=== PATIENT | female | born 1960 | race Caucasian/White ===

== ENCOUNTER → 2020-03-11 10:50 | Outpatient (CLI) | payer OTHER ==
[2020-03-11 18:38] LABS: BASOPHILS 0.7 % (0-2); EOSINOPHILS 4.3 % (0-7); HEMATOCRIT 43.6 % (36.0-48.0); HEMOGLOBIN 14.7 g/dL (12-16); IMMATURE GRANULOCYTES 0.1 % (0-5); LYMPHOCYTES 26.3 % (15-50); MCH 31.2 pg (26.0-34.0); MCHC 33.7 g/dL (31.0-37.0); MCV 92.6 fL (80.0-100.0); MEAN PLATELET VOLUME 11.2 fL (7.4-10.4); MONOCYTES 6.7 % (2-11); NEUTROPHILS 61.9 % (40-80); PLATELET COUNT 358 10x3/uL (130-400); RBC 4.71 10x6/uL (4.00-5.40); WBC 7.5 10x3/uL (4.8-10.8)
== END | disposition home or self-care (01) ==
LOC: D.LABREF 10:50
PROVIDERS: ATTEND Internal Medicine Pulmonary Disease
DX: R05 Cough (principal); J30.2 Other seasonal allergic rhinitis

== ENCOUNTER 2020-03-17 09:47 | Day surgery (SDC) | payer OTHER ==
[~2020-03-17] VITALS: Ht 152.4 cm; Wt 51.8 kg
--- NOTE | ~2020-03-17 | OP ---
PATIENT NAME: ADITHYA GUERRA MEDICAL RECORD: [id number] :60 LOCATION:[facility] ADMISSION DATE: SURGEON: KARLOS DIEZ MD DATE OF OPERATION: 03/17/2020 PROCEDURE: Colonoscopy with polypectomy. REFERRING PHYSICIAN: Lauren Cummins. INDICATIONS: Ms. Guerra is a delightful 59-year-old woman with a history of GE reflux disease, epigastric pain, Hemoccult positive stool and history of colon polyps. She had an EGD on 12/24/2019 with finding showing a small hiatal hernia, antral ulcers, nonhemorrhagic and gastritis. Her hemoglobin today is 14.5 with an MCV of 93.1. Her last colonoscopy was 03/21/2017 with finding showing [id number] pandiverticulosis coli and 3 colon polyps. To further evaluate as a surveillance colonoscopy and to further evaluate Hemoccult positive stool, she presents for outpatient colonoscopy. PREMEDICATIONS: Total IV anesthesia (propofol 400 mg), ASA 3. INSTRUMENT: Olympus video colonoscope, pediatric. PROCEDURE AND FINDINGS: After receiving informed consent, Ms. Guerra was placed on the left lateral decubitus position, sedated as per anesthesia. After achieving adequate sedation, distal rectal exam was performed that showed no external hemorrhoidal tags, fissures or fistulas, normal sphincter tone, no palpable rectal masses. The colonoscope was introduced per rectally and advanced to the cecum without difficulty. The cecum, IC valve, and appendiceal orifice were identified and appeared normal. As the colonoscope was withdrawn, careful inspection was made of the dominguez of the colon. Overall mucosa had normal vascular and fold pattern. There was a moderate number of diverticula seen in the ascending colon and a few diverticula seen scattered in the transverse colon. Again, number of diverticula were seen scattered throughout the sigmoid colon. In the distal sigmoid colon, there was a diminutive polyp measuring 0.25 cm in size that was ablated with the hot biopsy forceps. Two other polyps measuring 0.3 cm in size, sessile in nature, located again in the sigmoid colon, removed hot biopsy forcep technique. Retroflexion in the rectum showed mild internal hemorrhoids, grade II. A good prep was present. Ms. Guerra tolerated the procedure well, no immediate complications. Withdrawal time was 8 minutes. ASSESSMENT: 1. Jzfo-ez-rmqfmjle pandiverticulosis coli. 2. Three colon polyps, one diminutive status post ablation, the other 2 removed with hot biopsy forceps technique. 3. Grade II internal hemorrhoids (the gastric ulcers and hemorrhoids, likely source of Hemoccult positive blood). RECOMMENDATIONS: 1. Follow up histopathology. 2. Avoid aspirin, nonsteroidal anti-inflammatory drugs and BETTENCOURT-2 inhibitors 14 days post polypectomy. 3. High fiber diet. OPERATIVE REPORT [id number] ADTIHYA GUERRA 4. Surveillance colonoscopy in 3 years. TRANSINT:[id number] Voice Confirmation ID: [id number] DOCUMENT ID: [id number] cc: MIKAYLA Gale TERRI MD CC: [id number] DICTATION DATE: 03/17/20 1140 [employer] OPERATOR: 03/17/20 1516 [facility] 03/17/[address] [id number]
[2020-03-17] MEDS ORDERED: DEXILANT60 MG PO (10:29)
[2020-03-17] MEDS ORDERED: ACEBUTOLOL HCL200 MG PO (10:30)
[2020-03-17] MEDS ORDERED: FLUTICASONE PRO16 GM NASAL (10:30)
[2020-03-17] MEDS ORDERED: ZYRTEC10 MG PO (10:30)
[2020-03-17] MEDS ORDERED: SINGULAIR10 MG PO (10:31)
[2020-03-17] MEDS ORDERED: TRAZODONE HCL150 MG PO (10:31)
[2020-03-17] MEDS ORDERED: PEPCID40 MG PO (10:32)
[2020-03-17 10:34] LABS: BASOPHILS 0.5 % (0-2); EOSINOPHILS 2.1 % (0-7); HEMATOCRIT 42.9 % (36.0-48.0); HEMOGLOBIN 14.5 g/dL (12-16); IMMATURE GRANULOCYTES 0.3 % (0-5); LYMPHOCYTES 25.8 % (15-50); MCH 31.5 pg (26.0-34.0); MCHC 33.8 g/dL (31.0-37.0); MCV 93.1 fL (80.0-100.0); MEAN PLATELET VOLUME 10.6 fL (7.4-10.4); MONOCYTES 9.3 % (2-11); PLATELET COUNT 312 10x3/uL (130-400); RBC 4.61 10x6/uL (4.00-5.40); RDW 12.9 % (11.5-14.5); WBC 6.6 10x3/uL (4.8-10.8)
[2020-03-17 10:41] VITALS: Ht 152.4 cm; Wt 51.8 kg
[2020-03-17 10:42] LABS: CALC OSMOLALITY 266 mosm/kg (275-300); CALCIUM 10.1 mg/dL (8.5-10.1); CARBON DIOXIDE 27.3 mmol/L (21.0-32.0); CHLORIDE - SERUM 99 mmol/L (98-107); CREATININE - SERUM 0.8 mg/dL (0.6-1.3); GLUCOSE 85 mg/dL (74-106); SODIUM 135 mmol/L (136-145); UREA NITROGEN 7 mg/dL (7-18); eGFR NON AFRICAN AMERICAN 78 mL/min (90-120)
--- NOTE | 2020-03-17 12:07 | NUR ---
DC INSTRUCTIONS GIVEN TO PT. STATES UNDERSTANDINGS. DC'D IV CATH FULLY INTACT.
--- NOTE | 2020-03-17 12:22 | NUR ---
PT LEFT UNIT VIA WC AT 1214
== END 2020-03-17 12:14 | disposition home or self-care (01) ==
LOC: D.OPS 09:47
PROVIDERS: Anesthesiology; ATTEND Internal Medicine Gastroenterology
DX: K21.9 Gastro-esophageal reflux disease without esophagitis (principal); Z86.010 Personal history of colon polyps; R10.13 Epigastric pain; K57.90 Diverticulosis of intestine, part unspecified, without perforation or abscess without bleeding; K63.5 Polyp of colon; K64.1 Second degree hemorrhoids; J45.909 Unspecified asthma, uncomplicated; Z72.0 Tobacco use

== ENCOUNTER → 2020-05-22 11:02 | Outpatient (CLI) | payer OTHER ==
[2020-03-17 10:41] VITALS: BMI 22.3
[~2020-05-22 11:02] MED LIST: ACEBUTOLOL HCL200 MG PO; DEXILANT60 MG PO; FLUTICASONE PRO16 GM NASAL; PEPCID40 MG PO; SINGULAIR10 MG PO; TRAZODONE HCL150 MG PO; ZYRTEC10 MG PO
[2020-05-22 11:47] LABS: HEMATOCRIT 41.3 % (36.0-48.0); HEMOGLOBIN 14.4 g/dL (12-16); LYMPHOCYTES 34.6 % (15-50); MCH 31.9 pg (26.0-34.0); MCHC 34.9 g/dL (31.0-37.0); MCV 91.4 fL (80.0-100.0); MEAN PLATELET VOLUME 10.5 fL (7.4-10.4); NEUTROPHILS 58.4 % (40-80); PLATELET COUNT 304 10x3/uL (130-400); RBC 4.52 10x6/uL (4.00-5.40); RDW 13.3 % (11.5-14.5)
== END | disposition home or self-care (01) ==
LOC: D.LAB 11:02
PROVIDERS: ATTEND Internal Medicine Pulmonary Disease
DX: Z11.59 Encounter for screening for other viral diseases (principal)

== ENCOUNTER → 2020-05-25 10:44 | Outpatient (CLI) | payer OTHER ==
[2020-03-17 10:41] VITALS: BMI 22.3
== END | disposition home or self-care (01) ==
LOC: D.RT 10:44
PROVIDERS: ATTEND Internal Medicine Pulmonary Disease
DX: R05 Cough (principal); J30.2 Other seasonal allergic rhinitis; Z11.59 Encounter for screening for other viral diseases

== ENCOUNTER → 2020-06-16 09:40 | Outpatient (CLI) | payer OTHER ==
[2020-03-17 10:41] VITALS: BMI 22.3
[2020-06-16 11:24] LABS: ALBUMIN 4.1 g/dL (3.4-5.0); ALKALINE PHOSPHATASE 94 U/L (30-120); ALT (SGPT) 27 U/L (10-68); AMYLASE - SERUM 83 U/L (25-115); BILIRUBIN - TOTAL 0.87 mg/dL (0.2-1.3); CALC OSMOLALITY 273 mosm/kg (275-300); CALCIUM 9.6 mg/dL (8.5-10.1); CHLORIDE - SERUM 102 mmol/L (98-107); CREATININE - SERUM 0.8 mg/dL (0.6-1.3); GLUCOSE 89 mg/dL (74-106); LIPASE 180 U/L (73-393); POTASSIUM - SERUM 3.9 mmol/L (3.5-5.1); PROTEIN - SERUM 7.7 g/dL (6.4-8.2); SODIUM 138 mmol/L (136-145); UREA NITROGEN 9 mg/dL (7-18); eGFR NON AFRICAN AMERICAN 78 mL/min (90-120)
== END | disposition home or self-care (01) ==
LOC: D.US 09:40
PROVIDERS: ATTEND Internal Medicine Gastroenterology
DX: R10.9 Unspecified abdominal pain (principal)